=== PATIENT | female | born 1955 | race Caucasian/White ===

== ENCOUNTER → 2022-05-23 13:10 | Outpatient (BNVA) | payer MEDICARE, MEDICAID, SELFPAY | PROVIDERS: Visit Provider Specialist | DX: E11.42 Type 2 diabetes mellitus with diabetic polyneuropathy (principal); Z79.4 Long term (current) use of insulin; R26.89 Other abnormalities of gait and mobility; G25.0 Essential tremor; R42 Dizziness and giddiness; E66.01 Morbid (severe) obesity due to excess calories; Z68.43 Body mass index [BMI] 50.0-59.9, adult | CPT/HCPCS: 36415; 82607; 82746; 83036; 85651; 99204 ==

== ENCOUNTER → 2022-07-11 13:57 | Outpatient (BNVA) | payer MEDICARE, MEDICAID, SELFPAY | PROVIDERS: PCP Nurse Practitioner Family; Referring Provider Specialist; Visit Provider Specialist | DX: G62.89 Other specified polyneuropathies (principal) | CPT/HCPCS: 95909; 95911 ==

== ENCOUNTER → 2022-10-03 15:16 | Outpatient (BNVA) | payer MEDICARE, MEDICAID, SELFPAY | PROVIDERS: PCP Nurse Practitioner Family; Visit Provider Specialist | DX: E11.42 Type 2 diabetes mellitus with diabetic polyneuropathy (principal); M54.2 Cervicalgia; R26.89 Other abnormalities of gait and mobility; G25.0 Essential tremor; Z79.4 Long term (current) use of insulin | CPT/HCPCS: 99214 ==

== ENCOUNTER 2022-12-15 12:12 | Outpatient (CLI) | payer MEDICARE, MEDICAID, SELFPAY ==
--- NOTE | 2022-12-15 13:00 | MR_ITS ---
WS: [id number] MRI CERVICAL SPINE NONCONTRAST HISTORY: M54.2 - Cervicalgia COMPARISON: None available. Technique: Multiplanar, multisequence noncontrast imaging of the cervical spine. Straightening of the normal cervical lordosis. No fractures. Disc spaces are narrowed and desiccated, most significant at C5-6 and C6-7. Craniocervical junction, C1 and C2 relationship, odontoid process and soft tissues are normal. C2-C3: Minimal LEFT foraminal narrowing. C3-C4: Small central disc protrusion. Mild encroachment upon the central canal. No significant stenos is. C4-C5: Mild annular disc bulging and small foraminal osteophytes. Mild central and bilateral foramina l stenosis. C5-C6: Diffuse osteophytic ridging and annular disc bulging. Moderate central and bilateral foraminal stenosis. C6-C7: Diffuse annular disc bulging and osteophytes. Small central disc protrusion. Moderate central and bilateral foraminal stenosis. C7-T1: No significant stenosis. Paraspinal soft tissue are normal. MR/MR cervical spin wo con* [id number] IMPRESSION: 1. Moderate central and bilateral foraminal stenosis at C5-6 and C6-7 due to o steophyte and disc disease. Most significant stenosis at C6-7. 2. Very mild LEFT foraminal narrowing at C2-3. 3. Small central disc protrusion at C3-4.
== END 2022-12-15 12:13 | disposition home or self-care (01) ==
LOC: RAD 12:15
PROVIDERS: PCP Nurse Practitioner Family; Visit Provider Specialist
DX: R26.9 Unspecified abnormalities of gait and mobility (principal); M48.02 Spinal stenosis, cervical region; M25.78 Osteophyte, vertebrae; M50.21 Other cervical disc displacement, high cervical region
CPT/HCPCS: 72141

== ENCOUNTER → 2023-04-03 14:07 | Outpatient (BNVA) | payer MEDICARE, MEDICAID, SELFPAY | PROVIDERS: PCP Nurse Practitioner Family; Visit Provider Specialist | DX: E11.40 Type 2 diabetes mellitus with diabetic neuropathy, unspecified (principal); Z79.4 Long term (current) use of insulin; M48.02 Spinal stenosis, cervical region; R42 Dizziness and giddiness; R26.9 Unspecified abnormalities of gait and mobility | CPT/HCPCS: 99214 ==